=== PATIENT | male | born 1965 | race Caucasian/White ===

== ENCOUNTER 2019-03-29 20:19 | Emergency (ER) | payer MEDICARE, MEDICAID ==
[2019-03-29] MEDS: CEPHALEXIN 500 MG CAP PO (20:46)
[2019-03-29] MEDS: HYDROCODONE/APAP (10/325) TAB PO (20:46)
[2019-03-29] MEDS: TRIMETHOPRIM/SULFAMETHOX (DS) TAB PO (20:46)
== END 2019-03-29 21:30 | disposition home or self-care (01) ==
LOC: E/R 20:19
DX: L03.116 Cellulitis of left lower limb (principal); E11.22 Type 2 diabetes mellitus with diabetic chronic kidney disease; N18.4 Chronic kidney disease, stage 4 (severe); F17.210 Nicotine dependence, cigarettes, uncomplicated
CPT/HCPCS: 73590; 82962; 99283-25